=== PATIENT | female | born 1960 | race Caucasian/White ===

== ENCOUNTER 2019-04-15 08:46 | Day surgery (SDC) | payer OTHER ==
[~2019-04-15] VITALS: Ht 152.4 cm; Wt 63.1 kg
[~2019-04-15 08:46] MED LIST: LEVOTHYROXINE
[2019-04-15 09:27] VITALS: Ht 152.4 cm; Wt 63.1 kg
[2019-04-15] MEDS ORDERED: LIDOCAINE 2% (SDV) 5 ML INJ ONE (09:32)
[2019-04-15] MEDS ORDERED: PROPOFOL 60 ML ONE (09:32)
[2019-04-15 09:45] VITALS: BP 100/64; PULSE 60; RESP 20
[2019-04-15 11:34] VITALS: BP 129/66; RESP 18
== END 2019-04-15 14:09 | disposition home or self-care (01) ==
LOC: GIL 08:46
PROVIDERS: ATTEND Internal Medicine Gastroenterology
DX: Z12.11 Encounter for screening for malignant neoplasm of colon (principal); K64.4 Residual hemorrhoidal skin tags; K29.50 Unspecified chronic gastritis without bleeding
CPT/HCPCS: 43239; 45378; 88305; 88312; Z7610